=== PATIENT | female | born 1985 | race Caucasian/White ===

== ENCOUNTER 2025-01-13 20:05 | Outpatient (REF) | payer MEDICAID, SELFPAY | END 2025-01-13 20:06 | disposition home or self-care (01) | LOC: LBN 20:05 | PROVIDERS: Visit Provider Advanced Practice Midwife | DX: Z34.92 Encounter for supervision of normal pregnancy, unspecified, second trimester (principal) | CPT/HCPCS: 87086 ==

== ENCOUNTER 2025-01-22 02:12 | Outpatient (CLI) | payer MEDICAID, SELFPAY ==
[2025-01-22 10:45] LABS: Abs Immature Grans 0.10 10^3/uL (0.0-0.06); HCT 33.2 % (36.0-46.0); HGB 10.8 g/dL (11.2-15.7); Immature Grans % 1.1 %; MCH 31.4 pg (27.0-33.0); MCHC 32.5 % (32.0-36.0); MCV 97 fL (80-95); MPV 10.9 fL (8.0-11.0); Platelet Count 199 10^3/uL (130-400); RBC 3.44 10^6/uL (3.93-5.22); RDW 13.2 % (11.7-14.6); RDW-SD 46.7 fL; WBC 9.46 10^3/uL (4.4-10.8)
[2025-01-22 11:03] LABS: Glucose,1 Hr (Glucola) 83 mg/dL (80-140)
[2025-01-22 22:41] LABS: HIV-1/2 Ag & Ab Screen Negative (Negative)
[2025-01-22 23:02] LABS: Hepatitis C Ab w Rflx HCV PCR Negative (Negative)
[2025-01-23 10:43] LABS: Rubella IgG Ab (UVM) Positive (See Note)
[2025-01-23 12:15] LABS: Chlamydia Result Negative (Negative); GC Result Negative (Negative)
[2025-01-26 12:24] LABS: Syphilis IgG w/Reflex Nonreactive (Nonreactive)
== END 2025-01-22 02:13 | disposition home or self-care (01) ==
LOC: LBO 02:12
PROVIDERS: Advanced Practice Midwife; Visit Provider Advanced Practice Midwife
DX: Z34.93 Encounter for supervision of normal pregnancy, unspecified, third trimester
CPT/HCPCS: 36415; 82950; 86787; 86803; 86850; 86900; 86901; 87340; 87389; 87491; 87591; 85025; 86762; 86780